=== PATIENT | female | born 1960 | race Caucasian/White ===

== ENCOUNTER 2022-03-06 19:34 | Emergency (ER) | payer BC, SELFPAY ==
[2022-03-06 19:43] VITALS: BP 151/73; PULSE 78; RESP 18; TEMP 36.4; O2SAT 98
[2022-03-06 19:59] LABS: Appearance Urine Clear (Clear); Bilirubin Urine Negative (Negative); Blood Urine Negative (Negative); Color Urine Yellow (Yellow); Glucose Urine Negative (Negative); Ketones Urine Negative (Negative); Leukocyte Esterase Urine Negative (Negative); Nitrite Urine Positive (Negative); Protein Urine Negative (Negative); Specific Gravity Urine 1.015 (1.000-1.030); Urobilinogen Urine 0.2 (0.2-1.0); pH Urine 7.5 (5.0-8.5)
[2022-03-06 20:08] LABS: RBC Urine 0-2 (0-2); Squamous Epithelial Cell Urine Few (None-Few); WBC Urine 0-2 (0-5)
--- NOTE | 2022-03-06 20:09 | ED.FEMALEGU ---
HPI - Female Genitourinary General Date Seen: 03/06/22 Chief complaint: Urogenital Problems, Female Stated complaint: POSSIBLE BLADDER INFECTION,SWELLING IN LEFT GROIN Time Seen by Provider: 03/06/22 19:53 Source: patient Mode of arrival: ambulatory Limitations: no limitations History of Present Illness HPI Narrative: Patient is a delightful 62-year-old female who presents here with 3 days worth of lower abdominal pressure, dysuria, postvoid urgency, she says she feels she might have a bladder infection, she spoke to her daughters who have had similar symptoms. She denies any fevers chills back pain associated with this any nausea or vomiting. No real history of previous bladder infections, and does not note that there is any blood in her urine or vaginal discharge. But she does note however in her left groin all region she has a small lump that is tender, this is cropped up in the last 3-4 days. Does notice anything around her vaginal opening, the cause any discomfort. She called an online provider, who said that she felt more comfortable if she was seen in the emergency room. MD elicited complaint: dysuria and UTI Severity: moderate Urinary symptoms: Dysuria, Urgency and Frequency Exacerbating factors: urination Relieving factors: none Associated symptoms: lump(s) Treatment prior to arrival: none Patient : No Related Data Home Medications Medication Instructions Recorded Confirmed No Known Home Medications 03/06/22 03/06/22 Allergies Allergy/AdvReac Type Severity Reaction Status Date / Time Penicillins Allergy Unknown Verified 03/06/22 19:47 Review of Systems Status of ROS: Reports: 6 or more systems reviewed and unremarkable except as noted in History and below [facility] Medical History (Updated 03/06/22 @ 20:24 by Danie Barton MD) No significant past medical history Surgical History (Updated 03/06/22 @ 20:22 by Terrence Carrasquillo RN) H/O tubal ligation History of appendectomy History of bilateral knee replacement History of endometrial ablation Social History Smoking Status: Never smoker Do you use any of these nicotine containing products: None How often do you have a drink containing alcohol: never AUDIT-C Alcohol total score: 0 Non-prescribed substance use: denies use Exam Narrative: Exam Narrative: Patient is seen with nurse Starks present, abdomen is soft there is no guarding no past organomegaly no tenderness is elicited any of the areas, no CVA tenderness, back is nontender to palpation, her left groin does show of isolated lymph node, that is tender, no other lymphadenopathy is noted in her groins bilaterally, axilla, supraclavicular or sternocleidomastoid regions. Const: Vital Signs, click to edit/add: Vital Signs - 24 hr 03/06/22 19:43 Temperature 97.6 F Pulse Rate [Right Pulse Oximeter] 78 Respiratory Rate 18 Blood Pressure [Ri ght Upper Arm] 151/73 H Pulse Oximetry 98 Oxygen Delivery Me thod Room Air Documenting provider has reviewed patient's vital signs: yes Common normals: no apparent distress, average body habitus and oriented x3 Neuro: Common normals: oriented x3 Course Vital Signs Vital signs: Initial Vital Signs Temperature 97.6 F 03/06/22 19:43 Temperature Source Temporal Artery Scan 03/06/22 19:43 Pulse Rate 78 03/06/22 19:43 Respiratory Rate 18 03/06/22 19:43 Blood Pressure 151/73 H 03/06/22 19:43 Blood Pressure Mean 99 03/06/22 19:43 Blood Pressure Position Sitting 03/06/22 19:43 Pulse Oximetry 98 03/06/22 19:43 Oxygen Delivery Method 03/06/22 19:43 Vital Signs Temperature 97.6 F 03/06/22 19:43 Pulse Rate 78 03/06/22 19:43 Respiratory Rate 18 03/06/22 19:43 Blood Pressure 151/73 H 03/06/22 19:43 Pulse Oximetry 98 03/06/22 19:43 Oxygen Delivery Method 03/06/22 19:43 Temperature 97.6 F 03/06/22 19:43 Pulse Rate 78 03/06/22 19:43 Respiratory Rate 18 03/06/22 19:43 Blood Pressure 151/73 H 03/06/22 19:43 Pulse Oximetry 98 03/06/22 19:43 Oxygen Delivery Method 03/06/22 19:43 MDM - Female Genitourinary MDM Narrative Medical decision making narrative: Discussed with her, that I fully this is more likely a UTI I did consider other diagnosis such as appendicitis diverticulitis, bowel obstruction, STD, vaginal infection, or gland cyst. Differential Diagnosis Differential diagnosis: Likely urinary tract infection, cervicitis and cyst of Bartholin's gland Medical Records Attestation: I reviewed the patient's medical records. Lab Data Attestation: I reviewed the patient's lab results. Lab results narrative: Her labs are positive for nitrite, really negative for anything else, which she is not on realistic given that she is urinating probably 5-6 times per hour. Drinking a lot a water. Discussed with her that I think it is reasonable that we treat her, headache at Keflex would be a good thing. She tells me she has allergy to penicillin which basically was when she got IM injections with penicillin when she was younger she would pass out. I do not think that that is actually an allergy. It is more likely just from the injection Labs: Lab Results 03/06/22 Range/Units 19:45 Urine Color Yellow (Yellow) Urine Appearance Clear (Clear) Urine pH 7.5 (5.0-8.5) Ur Specific [place] 1.015 (1.000-1.030) Urine Protein Negative (Negative) Urine Glucose (UA) Negative (Negative) Urine Ketones Negative (Negative) Urine Blood Negative (Negative) Urine Nitrite Positive A (Negative) Urine Bilirubin Negative (Negative) Urine Urobilinogen 0.2 (0.2-1.0) Ur Leukocyte Esterase Negative (Negative) Urine RBC 0-2 (0-2) Urine WBC 0-2 (0-5) Ur Squamous Epith Cells Few (None-Few) Urine Bacteria None (None) Discharge Plan Discharge Clinical Impression: Acute lymphadenitis Urinary tract infection Qualifiers: Urinary tract infection type: site unspecified Patient Disposition: Home w/ Parent or Adult Condition: Stable Instructions: Urinary Tract Infection in Women (DC), Adenitis (ED) Additional Instructions: Home rest use of Keflex which is an antibiotic as directed. Try not to touch the gland on the left groin, as these are very reactive in will continue to be sore. Increasing nausea vomiting fevers chills or other symptoms I would like you to come back and be seen, or if pain increases in her back. Prescriptions: No Action No Known Home Medications Follow Up/Referrals: Laurita Orr MD [Primary Care Provider] - Stand Alone Forms: [employer] (powering [employer]) Info Instructions
[2022-03-06 20:30] VITALS: BP 145/68; PULSE 74; RESP 18; TEMP 36.4; O2SAT 98
[2022-03-06 20:31] VITALS: BP 145/68; PULSE 74; RESP 18; TEMP 36.4
== END 2022-03-06 20:31 | disposition home or self-care (01) ==
PROVIDERS: Emergency Provider Family Medicine; PCP Internal Medicine
DX: N39.0 Urinary tract infection, site not specified (principal); I88.9 Nonspecific lymphadenitis, unspecified
CPT/HCPCS: 81003; 81015; 87086; 99283

== ENCOUNTER 2022-03-12 14:31 | Outpatient (CLI) | payer BC, SELFPAY ==
[2022-03-13 01:18] LABS: Albumin* 4.5 g/dL (3.3-5.0); Chloride* 100 mmol/L (96-114); Sodium* 139 mmol/L (135-149)
[2022-03-13 01:19] LABS: Potassium* 4.6 mmol/L (3.6-5.1)
[2022-03-13 01:21] LABS: Alkaline Phosphatase* 81 U/L (40-150); Aspartate Amino Transferase* 33 U/L (12-35); Bilirubin Total* 0.7 mg/dL (0.1-1.5); Carbon Dioxide* 30 mmol/L (20-32); Creatinine* 0.8 mg/dL (0.5-1.5); Estimated Glomerular Filt Rate 83 ml/min; Total Protein* 7.8 g/dL (6.0-8.3)
[2022-03-13 01:22] LABS: Alanine Aminotransferase* 22 U/L (4-35); Blood Urea Nitrogen* 19 mg/dL (7-30); Calcium* 9.8 mg/dL (8.4-10.6); Glucose* 98 mg/dL (60-115)
[2022-03-13 02:43] LABS: C Reactive Protein* < 0.5 mg/dL (0.5-1.0)
== END 2022-03-12 14:32 | disposition home or self-care (01) ==
PROVIDERS: PCP Internal Medicine; Visit Provider Family Medicine
DX: L04.9 Acute lymphadenitis, unspecified (principal)
CPT/HCPCS: 80053; 86140

== ENCOUNTER 2024-04-09 07:55 | Outpatient (CLI) | payer MEDICARE, BC, SELFPAY | END 2024-04-09 07:56 | disposition home or self-care (01) | LOC: NFLDREF 04-11 14:23 | PROVIDERS: PCP Internal Medicine; Referring Provider Internal Medicine; Visit Provider Internal Medicine | DX: E78.5 Hyperlipidemia, unspecified (principal) | CPT/HCPCS: 80061 ==

== ENCOUNTER 2024-04-12 08:12 | Outpatient (CLI) | payer MEDICARE, BC, SELFPAY ==
[2024-04-14 09:43] LABS: HPV Source Cervical; HPV, High Risk by TMA Not Detected
== END 2024-04-12 08:13 | disposition home or self-care (01) ==
PROVIDERS: PCP Internal Medicine; Visit Provider Internal Medicine
DX: Z00.00 Encounter for general adult medical examination without abnormal findings (principal); E66.9 Obesity, unspecified; E78.5 Hyperlipidemia, unspecified; Z12.4 Encounter for screening for malignant neoplasm of cervix
CPT/HCPCS: 87624; 87625; 88141; 88142

== ENCOUNTER 2024-05-07 07:47 | Outpatient (CLI) | payer MEDICARE, BC, SELFPAY ==
--- NOTE | 2024-05-07 09:00 | W.ANESCHARGE ---
Anesthesia Charges Start Date/Time Anesthesia Start Date: 05/07/24 Anesthesia Start Time: 08:20 Stop Date/Time Anesthesia Stop Date: 05/07/24 Anesthesia Stop Time: 08:58
--- NOTE | 2024-05-07 09:37 | W.ANESCHARGE ---
Anesthesia Charges Start Date/Time Anesthesia Start Date: 05/07/24 Anesthesia Start Time: 08:20 Stop Date/Time Anesthesia Stop Date: 05/07/24 Anesthesia Stop Time: 08:58
== END 2024-05-07 07:48 | disposition home or self-care (01) ==
LOC: OP CLINIC 07:48
PROVIDERS: PCP Internal Medicine; Visit Provider Internal Medicine
DX: Z12.11 Encounter for screening for malignant neoplasm of colon (principal); D12.2 Benign neoplasm of ascending colon; K57.30 Diverticulosis of large intestine without perforation or abscess without bleeding
CPT/HCPCS: 00811; 45380; 88305; J2704

== ENCOUNTER 2024-05-22 12:42 | Outpatient (CLI) | payer MEDICARE, BC, SELFPAY ==
--- NOTE | 2024-05-22 14:00 | CRLHL7_ITS ---
For Patients: As a result of the Century Cures Act, medical imaging exams and procedure reports are released immediately into your electronic medical record. You may view this report before your referring provider. If you have questions, please contact your health care provider. DXA BONE MINERAL DENSITY STUDY Current height (in): 64.0. Weight (lb): 190.0. Menopause age: 64. Ethnicity: White. Reason for exam: Asymptomatic menopausal state. 1. Have you had a previous hip or vertebral fracture? No. 2. Have you had any fractures during your adult life which did not result from significant trauma (e.g., auto accident)? No. 3. Did either of your parents have a hip fracture? Yes. 4. Do you smoke? No. 5. Have you ever taken Glucocorticoids? No. 6. Do you have rheumatoid arthritis? No. 7. Do you have secondary osteoporosis? No. 8. Do you drink 3 or more alcoholic drinks per day? No. 9. Are you being treated for osteoporosis? No. 10. Have you ever taken any of the following medications: Actonel, Evista, Fosamax, Miacalcin, Reclast, Boniva, Forteo, HRT (i.e. estrogen/hormone therapy), Protelos, Prolia, Vitamin D, Calcium, other ??? please specify. ANSWER: No. 11. Do you have any of the following medical conditions: Anorexia or bulimia, asthma or emphysema, end stage renal disease, hyperparathyroidism, any seizure disorders, cancer, inflammatory bowel diseases, hysterectomy, other ??? please specify. ANSWER: No. 12. What was your maximum height (inches)? 64. 13. Do you perform weight bearing exercise regularly? No. 14. Do you regularly consume dairy products? Yes. 15. Do you drink caffeinated beverages? Yes. 16. At what age did your period start? 12. 17. Are you premenopausal? o. 18. How many full-term pregnancies have you had? 3. 19. Have you ever missed your period for more than 6 months in a row (not including or menopause)? No. TECHNIQUE: Bone mineral density study was performed using the Crysalin. FINDINGS: The results of the study expressed as bone mineral density (BMD) are as follows: Lumbar spine L1 to L4: BMD: 0.992 g/cm2. T-score: -0.5. Z-score: 1.3 Neck Left: BMD: 0.900 g/cm2. T-score: 0.5. Z-score: 2.0 Right: BMD: 0.915 g/cm2. T-score: 0.6. Z-score: 2.1 Total Left: BMD: 0.952 g/cm2. T-score: 0.1. Z-score: 1.3 Right: BMD: 0.938 g/cm2. T-score: -0.0. Z-score: 1.2 IMPRESSION: Normal bone density. Wyatt Arteaga M.D. Diagnostic Radiologist [email or web address] Transcribed: 12:48 pm DW/Dictated by: Wyatt Arteaga MD @ 05/23/2024 12:13:00 PM (Electronically Signed)
--- NOTE | 2024-05-22 14:40 | CRLHL7_ITS ---
For Patients: As a result of the Century Cures Act, medical imaging exams and procedure reports are released immediately into your electronic medical record. You may view this report before your referring provider. If you have questions, please contact your health care provider. BILATERAL DIGITAL SCREENING MAMMOGRAM WITH COMPUTER-AIDED DETECTION AND TOMOSYNTHESIS CLINICAL HISTORY: Routine screening exam. COMPARISON: 07/24/21, 08/08/18, 09/27/14. TECHNIQUE: Digital mammogram in CC and MLO projections including computer-aided detection (CAD). Tomosynthesis was used in this interpretation. BREAST COMPOSITION: There are scattered areas of fibroglandular density. FINDINGS: RIGHT Breast: No suspicious findings. LEFT Breast: Focal asymmetric density upper outer quadrant 7 cm from the nipple. IMPRESSION: LEFT breast asymmetry/mass. RECOMMENDATIONS: Additional mammographic views of the LEFT breast including 3D spot compression CC/MLO. LEFT breast ultrasound may also be required. BI-RADS Category 0: Incomplete: Need Additional Imaging Evaluation The [facility] will contact the patient. A lay language report of this examination will be provided to the patient. Dictated by Wyatt Arteaga MD @ 05/23/2024 9:56:30 AM jj/Dictated by: Wyatt Arteaga MD @ 05/23/2024 9:56:00 AM (Electronically Signed)
== END 2024-05-22 12:43 | disposition home or self-care (01) ==
PROVIDERS: PCP Internal Medicine; Visit Provider Internal Medicine
DX: Z12.31 Encounter for screening mammogram for malignant neoplasm of breast (principal); N63.20 Unspecified lump in the left breast, unspecified quadrant; Z78.0 Asymptomatic menopausal state
CPT/HCPCS: 77063; 77067; 77080

== ENCOUNTER 2024-06-01 07:30 | Outpatient (CLI) | payer MEDICARE, BC, SELFPAY ==
--- NOTE | 2024-06-01 07:45 | CRLHL7_ITS ---
For Patients: As a result of the Cures Act, medical imaging exams and procedure reports are released immediately into your electronic medical record. You may view this report before your referring provider. If you have questions, please contact your health care provider. DIGITAL DIAGNOSTIC LEFT MAMMOGRAM USING TOMOSYNTHESIS AND COMPUTER-AIDED DETECTION LEFT BREAST ULTRASOUND CLINICAL HISTORY: LEFT breast mass/asymmetry. COMPARISON: 05/22/2024. TECHNIQUE: Digital LEFT mammogram in two projections. Tomosynthesis and CAD were used in this interpretation. Real-time ultrasound imaging of LEFT breast with imaging documentation. Scanning was performed by both the technologist and the radiologist. BREAST COMPOSITION: There are scattered areas of fibroglandular density. FINDINGS: 3D spot compression CC/MLO LEFT breast mammogram images submitted. Persistent irregular density within the upper outer quadrant. No suspicious calcifications. Targeted LEFT breast ultrasound performed at 1 o`clock 7 cm from the nipple. In this location, there is a subtle heterogeneous solid nodule measuring 9 x 6 x 8 millimeters. IMPRESSION: Indeterminate heterogeneous solid nodule LEFT breast 1 o`clock 7 cm from the nipple measuring 9 millimeters. RECOMMENDATIONS: Ultrasound-guided core needle biopsy. A lay language report of this examination will be provided to the patient. BI-RADS Category 4: Suspicious Dictated by Wyatt Arteaga MD @ 06/01/2024 8:56:02 AM jj/Dictated by: Wyatt Arteaga MD @ 06/01/2024 8:55:00 AM (Electronically Signed)
--- NOTE | 2024-06-01 08:15 | CRLHL7_ITS ---
For Patients: As a result of the Cures Act, medical imaging exams and procedure reports are released immediately into your electronic medical record. You may view this report before your referring provider. If you have questions, please contact your health care provider. PLEASE SEE DIGITAL DIAGNOSTIC LEFT MAMMOGRAM PERFORMED SAME DAY CRL:[email or web address] onofre/Dictated by: Wyatt Arteaga MD @ 06/01/2024 8:56:00 AM (Electronically Signed)
== END 2024-06-01 07:31 | disposition home or self-care (01) ==
LOC: MAMMO 07:31
PROVIDERS: PCP Internal Medicine; Visit Provider Internal Medicine
DX: N63.20 Unspecified lump in the left breast, unspecified quadrant (principal); R92.8 Other abnormal and inconclusive findings on diagnostic imaging of breast
CPT/HCPCS: 76642; 77065; G0279

== ENCOUNTER 2024-06-05 07:46 | Outpatient (CLI) | payer MEDICARE, BC, SELFPAY ==
--- NOTE | 2024-06-05 08:00 | CRLHL7_ITS ---
For Patients: As a result of the Century Cures Act, medical imaging exams and procedure reports are released immediately into your electronic medical record. You may view this report before your referring provider. If you have questions, please contact your health care provider. ULTRASOUND-GUIDED BREAST BIOPSY AND POST-BIOPSY DIGITAL MAMMOGRAM FOR BIOPSY MARKER PLACEMENT CLINICAL HISTORY: Indeterminate lesion. COMPARISON STUDIES: 06/01/2024. TECHNIQUE: Real-time ultrasound with image documentation was used for targeting the breast lesion. Core biopsy specimens were obtained using an automated gun with an 18-gauge biopsy needle. Post-biopsy CC and ML digital mammograms were obtained to document position of the biopsy marker. CONSENT and TIME OUT: The procedure, risks, and alternatives were explained to the patient and a consent was signed. [place] Protocol was followed including pre-procedure verification that relevant information/documentation was available, reviewed and properly matched to the patient; consent accurate and complete; and equipment and supplies available. Time Out was conducted just prior to starting procedure to verify the four required elements: patient identity, correct side/site marked (if applicable), procedure, relevant images/results properly labeled and displayed (if applicable). PROCEDURE: The patient was positioned supine on the ultrasound table. The breast was prepped with ChloraPrep. 6 cc of 1 percent lidocaine used for local anesthesia. Core samples were obtained. A sterile metal biopsy clip was placed percutaneously to nabila the lesion position within the breast. The specimens were placed in 10% formalin and sent to the pathology department. Pressure was held on the biopsy site until all bleeding subsided. The skin incision was closed with Steri-Strips. An ice pack was positioned over the biopsy site. Post-biopsy instructions were reviewed with the patient, and a written copy was given to her. LATERALITY: LEFT breast. LESION: Heterogeneous solid nodule measuring 8 x 9 x 6 millimeters at 1 o`clock 7 cm from the nipple. SUSPICION FOR MALIGNANCY: High. NUMBER OF SAMPLES: 5. BIOPSY CLIP SHAPE: Oval. PROXIMITY OF CLIP TO TARGET: Within the lesion. IMPRESSION: Ultrasound-guided breast biopsy. When the pathology report is available, an addendum to this report will be made. ACR not applicable Dictated by Wyatt Arteaga MD @ 06/05/2024 10:34:42 AM jj/Dictated by: Wyatt Arteaga MD @ 06/05/2024 10:34:00 AM (Electronically Signed)
--- NOTE | 2024-06-05 08:45 | CRLHL7_ITS ---
For Patients: As a result of the Century Cures Act, medical imaging exams and procedure reports are released immediately into your electronic medical record. You may view this report before your referring provider. If you have questions, please contact your health care provider. PLEASE SEE ULTRASOUND-GUIDED LEFT BREAST BIOPSY PERFORMED SAME DAY CRL:[email or web address] onofre/Dictated by: Wyatt Arteaga MD @ 06/05/2024 10:34:00 AM (Electronically Signed)
== END 2024-06-05 07:47 | disposition home or self-care (01) ==
LOC: US 07:46
PROVIDERS: PCP Internal Medicine; Visit Provider Internal Medicine
DX: N64.9 Disorder of breast, unspecified (principal); C50.912 Malignant neoplasm of unspecified site of left female breast; R92.8 Other abnormal and inconclusive findings on diagnostic imaging of breast
CPT/HCPCS: 19083; 77065; 88305; 88360; 88361; A4648; A4649

== ENCOUNTER 2024-06-22 12:53 | Outpatient (RCR) | payer MEDICARE, BC, SELFPAY ==
--- NOTE | 2024-06-22 13:53 | PT.OPE ---
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 Their surgery has not been scheduled yet but likely will be a lumpectomy with SLND on July 31. Has not met with an oncologist yet, if lymph nodes are clear then they will just have radiation. Has no major issues with neck and shoulders. Has a history for bilateral knee replacements. Stays active with housework, no formal exercise. Pain Comments tenderness at biopsy spot Current Work Status Retired Objective Other/Pertinent Objective AROM standing: Shoulder flexion L 153 R 160 abduction 176 B [place] L 168 R 174 IR T11 B ER T3 B Posture: no significant impairments Joint mobility: normal posterior glide of GHJ normal inferior glide of GHJ Scapular control: fair Pec length in supine abd/ER: 4 fingers from table top Functional Test Performed & Score Pre op SPADI:0/130 Assessment Assessment/Impression Patient presents to PT pre- operatively for planned Breast Cancer surgery to include lumpectomy and SLNB on July 31. Assessment today included baseline UE ROM, postural, and joint mobility measurements which are to be compared to measurements retaken 4 weeks post-surgery. At that time, any reduced movement, decline in function, or postural issues will be addressed with skilled care and new goals will be established. Education was given today regarding post-operative signs of infection, axillary cording, seroma formation, and home program to be performed within the first 3-4 weeks post-operatively focusing on UE mobility within surgical restrictions. Primary Functional Limitations none at this time Plan of Care Rehabilitation Potential Good Physical Therapy Goals Goals pre op 1. Pt demonstrates awareness of post-operative movement restrictions and HEP to facilitate lymphatic regeneration and reduce the risk of seroma formation, axillary web syndrome and lymphedema while ensuring shoulder joint mobility. Coordination/Communication With Referral Source Treatment Plan/Direct Interventions Ice/Cold/Vasopneumatic,Joint Mobilization,Manual Therapy, Neuromuscular Re-ed,Self-Care/ Home Management,Therapeutic Activities,Therapeutic Exercises Frequency/Duration 1-2x a week for 3-4 weeks prior to radiation Patient Will Be Discharged From Therapy Completion of LTG(s), Independent w/HEP Evaluation Billing Untimed Code Treatment Minutes 17 Complexity Low Certification Information Initial Certification Date 06/22/24 Ending Certification Date 09/20/24 Provider Signature Required Yes Provider Signature Shows Agreement With POC & Medical Necessity Physician NPI Number Write NPI# Here Physician Comment/Change : Physician Signature & Date Requested Please Sign/Date Here
== END 2024-10-20 23:59 | disposition home or self-care (01) ==
PROVIDERS: PCP Internal Medicine; Visit Provider Surgery
DX: C50.912 Malignant neoplasm of unspecified site of left female breast (principal); Z51.89 Encounter for other specified aftercare
CPT/HCPCS: 97110; 97161

== ENCOUNTER 2024-07-17 09:28 | Day surgery (SDC) | payer MEDICARE, BC, SELFPAY ==
--- NOTE | 2024-07-17 10:15 | CRLHL7_ITS ---
For Patients: As a result of the Cures Act, medical imaging exams and procedure reports are released immediately into your electronic medical record. You may view this report before your referring provider. If you have questions, please contact your health care provider. BREAST WIRE LOCALIZATION USING ULTRASOUND GUIDANCE CLINICAL HISTORY: LEFT breast cancer. LATERALITY: LEFT breast. LESION: Solid lesion LEFT breast 1 o`clock 7 cm from the nipple measuring 9 x 6 x 8 millimeters. LOCALIZATION WIRE: [place] hookwire. TECHNIQUE: The localization wire was placed using real-time ultrasound guidance with image documentation. Cranial-caudal and medial-lateral digital mammograms were obtained after localization wire placement. CONSENT and TIME OUT: The procedure, risks, and alternatives were explained to the patient and a consent was signed. [place] Protocol was followed including pre-procedure verification that relevant information/documentation was available, reviewed and properly matched to the patient; consent accurate and complete; and equipment and supplies available. Time Out was conducted just prior to starting procedure to verify the four required elements: patient identity, correct side/site marked (if applicable), procedure, relevant images/results properly labeled and displayed (if applicable). PROCEDURE: The skin was prepped with ChloraPrep and 6 cc of 1% lidocaine was injected for local anesthesia. The localization wire was placed within or near the targeted breast lesion using ultrasound guidance. The patient tolerated the procedure well. PROXIMITY OF WIRE TO LESION: The wire is present within the lesion adjacent to the clip. IMPRESSION: Successful breast wire localization. ACR not applicable Dictated by Wyatt Arteaga MD @ 07/17/2024 12:30:34 PM jj/Dictated by: Wyatt Arteaga MD @ 07/17/2024 12:30:00 PM (Electronically Signed)
[2024-07-17 10:26] VITALS: BP 142/92; PULSE 74; RESP 16; TEMP 37.1; O2SAT 97; BMI 20.7
[2024-07-17] MEDS: SODIUM CHLORIDE 0.9 % (FLUSH) 10 ML SYRINGE IVF (10:30)
[2024-07-17] MEDS: 0.9 % SODIUM CHLORIDE 500 ML 500 ML 100 ML IV (10:31)
--- NOTE | 2024-07-17 11:00 | CRLHL7_ITS ---
For Patients: As a result of the Century Cures Act, medical imaging exams and procedure reports are released immediately into your electronic medical record. You may view this report before your referring provider. If you have questions, please contact your health care provider. SEE ULTRASOUND-GUIDED LEFT BREAST WIRE LOCATION PERFORMED SAME DAY CRL:[place] onofre/Dictated by: Wyatt Arteaga MD @ 07/17/2024 12:29:00 PM (Electronically Signed)
--- NOTE | 2024-07-17 11:08 | W.PM.H&PU ---
History & Physical Update History & Physical Update H&P Reviewed and patient assessed: No changes noted
[2024-07-17] MEDS: ISOSULFAN BLUE 5 ML VIAL INJECTION (11:30)
[2024-07-17] MEDS: CEFAZOLIN 2 GM INJ IVP (11:30)
--- NOTE | 2024-07-17 12:03 | CRLHL7_ITS ---
For Patients: As a result of the Cures Act, medical imaging exams and procedure reports are released immediately into your electronic medical record. You may view this report before your referring provider. If you have questions, please contact your health care provider. LEFT BREAST SPECIMEN RADIOGRAPH CLINICAL HISTORY: LEFT breast cancer. COMPARISON: 06/01/2024, 06/05/2024. FINDINGS: Two views of the LEFT breast specimen images submitted. The specimen contains the biopsy lesion, the biopsy clip and the localization wire. IMPRESSION: Specimen contains the biopsied nodule, the biopsy clip and the localization wire. ACR not applicable Dictated by Wyatt Arteaga MD @ 07/17/2024 12:32:38 PM jj/Dictated by: Wyatt Arteaga MD @ 07/17/2024 12:32:00 PM (Electronically Signed)
[2024-07-17] MEDS: BUPIVACAINE 0.25% 30 ML INJECTION (13:18)
[2024-07-17] MEDS: LIDOCAINE 1% MDV 20 ML INJECTION (13:18)
[2024-07-17 13:33] VITALS: BP 128/69; PULSE 66; RESP 16; TEMP 36.2; O2SAT 95
--- NOTE | 2024-07-17 13:40 | W.ANESCHARGE ---
Anesthesia Charges Start Date/Time Anesthesia Start Date: 07/17/24 Anesthesia Start Time: 11:22 Stop Date/Time Anesthesia Stop Date: 07/17/24 Anesthesia Stop Time: 13:36
--- NOTE | 2024-07-17 13:44 | W.ANESCHARGE ---
Anesthesia Charges Start Date/Time Anesthesia Start Date: 07/17/24 Anesthesia Start Time: 11:22 Stop Date/Time Anesthesia Stop Date: 07/17/24 Anesthesia Stop Time: 13:36
[2024-07-17 13:45] VITALS: BP 135/83; PULSE 68; RESP 16; O2SAT 97
[2024-07-17] MEDS: HYDROCODONE-ACETAMIN 5-325 MG 1 TAB PO (13:50)
[2024-07-17 14:00] VITALS: BP 150/89; PULSE 67; RESP 16; O2SAT 97
[2024-07-17 14:15] VITALS: BP 149/80; PULSE 62; RESP 16; O2SAT 98
--- NOTE | 2024-07-17 16:14 | P.GSOP_ITS ---
Operative Note Date of procedure: 07/17/24 Pre-op diagnosis: Invasive ductal carcinoma, left breast Post-op diagnosis: Same Type of Procedure: 1. Left breast lumpectomy 2. [place] lymph node biopsy, unable to perform due to failure of nuclear medicine Indications: Patient is a 64-year-old female who was seen in clinic for an stage IA invasive ductal carcinoma of the left breast. Please see consultation note for full discussion regarding different treatment options. After all questions and concerns were addressed patient decided to proceed with left breast lumpectomy and sentinel lymph node biopsy. Risks and benefits of the procedure were discussed at length the patient. Risks included, but were not limited to: Bleeding, infection, risk of damage to surrounding structures, the risk of lymphedema, the risk of nerve injury, seroma formation, hematoma formation and the possible need for an additional procedure if the margins are positive. All questions and concerns were addressed with patient agreeing to proceed. Procedure Description: Prior to arrival in the operating room, the patient was taken to radiology where a wire was placed to localize the previously placed clip. She had previously undergone injection of a radiocolloid tracer at [address] by nuclear medicine. The patient was then brought to the operating room where anesthesia was induced. I injected 3 ml of lymphazurin blue and performed breast massage for a period of 5 minutes. The left breast and axilla were prepped and draped in the usual sterile fashion. Timeout was confirmed. Local anesthesia was infiltrated into a transverse incision in the upper outer location of the left breast. Using electrocautery, the segment of breast tissue containing the tip of the wire was excised. This was sent for evaluation. Radiology called back and confirmed that the clip and wire were present within the specimen. Pathology then called back and confirmed that margins were negative, but close (1-2 mm) anterior. Re- excision of the anterior margin was performed and sent for permanent evaluation as final margin. We then elected to perform the sentinel node aspect of the procedure. Using the neoprobe and placing it within the axilla I tried to identify a point of maximal counts. There was no signal within the axilla. The probe was tested at the nipple, with counts greater than 16,000. When follow-through the breast tissue the counts quickly tapered to 0 with no counts identified within the axilla or lymphatic tissue. A transverse incision was made within the axilla at the hairline. Local anesthesia was infiltrated into the skin. This was carried down to the subcutaneous tissue using electrocautery. Using a combination of blunt dissection and electrocautery the area was thoroughly explored with no activity from the Neoprobe and no blue nodes identified. At this point the decision was made to not pursue a sentinel lymph node due to failure of identification with the radionucleotide tracer. The wounds were irrigated and all irrigant suctioned from the wound. Additional local anesthesia was infiltrated. Joesph was placed in the breast wound. The wounds were then closed in layers using absorbable suture, and Steri-Strips were placed over the wounds. A double wide Cesar wrap was placed for compression. The patient was awakened without incident and taken to PACU in stable condition. Sponge, needle and instrument counts were correct x3 at the termination of the case. Findings: Left breast cancer, removed. No sentinel lymph node identified with radionucleotide tracer or blue dye. Anesthesia: MAC and local Surgeon: Jessica Doherty MD Estimated blood loss (mL): 25 Additional Specimen Information: 1. Left breast mass 2. Re-excision anterior margin Condition: stable Disposition: PACU
--- NOTE | 2024-07-17 16:22 | P.PCN_ITS ---
Procedure Note Date Seen: 07/17/24 Will [facility] bill your pro fee for this procedure?: Yes Bath Node Biopsy for Breast Cancer Operation Performed with Curative Intent: Yes Tracers used to Identify sentinel nodes in the upfront surgery (non-neoadjuvant) setting: Dye and Radioactive Tracer Tracers used to identify sentinel nodes in the neoadjuvant setting: N/A All nodes (colored or non-colored) present at the end of a dye filled lymphatic channel were removed: Yes (None identified) All significantly radioactive nodes were removed: Yes (None identified) All palpably suspicious nodes were removed: Yes (None identified) Biopsy proven positive nodes marked with clips prior to chemotherapy were identified and removed: Not Applicable
== END 2024-07-17 14:22 | disposition home or self-care (01) ==
PROVIDERS: PCP Internal Medicine; Visit Provider Surgery
PROC: (CPT 19125; principal; 2024-07-17 11:00)
PROC: (CPT 19125; 2024-07-17 11:00)
PROC: (CPT 19125; 2024-07-17 11:00)
DX: C50.412 Malignant neoplasm of upper-outer quadrant of left female breast (principal); Z17.0 Estrogen receptor positive status [ER+]; Z17.21 Progesterone receptor positive status
CPT/HCPCS: 19125; 38500; 01610; 19285; 76942; 77065; 88305; 88307; J2003; A9270; C1769; J0665; J0690; J1100; J2250; J2405; J2704; J3010; J7030

== ENCOUNTER 2024-08-09 09:05 | Outpatient (CLI) | payer MEDICARE, BC, SELFPAY | END 2024-08-09 09:06 | disposition home or self-care (01) | PROVIDERS: PCP Internal Medicine; Visit Provider Internal Medicine Hematology & Oncology | DX: M79.89 Other specified soft tissue disorders (principal) | CPT/HCPCS: 76882 ==

== ENCOUNTER 2024-12-05 14:30 | Outpatient (RCR) | payer MEDICARE, BC, SELFPAY ==
--- NOTE | 2024-08-01 15:37 | ONC.NURNOTE ---
1. Request for Oncotype testing submitted via online portal 2. Radiation Oncology referral and supporting documents faxed to [place]. They will call patient to schedule. Instructed to have consult after Oncotype results are back. 3. Radiology will call patient to schedule left axilla US Patient will need follow up with Dr. Soto to discuss endocrine therapy after radiation is completed. [facility] will schedule once treatment plan has been finalized.
--- NOTE | 2024-08-13 13:55 | ONC.NURNOTE ---
Oncotype results reviewed with Dr. Soto. Patient informed that her recurrence score is 9 and she would not benefit from chemotherapy. Okay to proceed with radiation, consult 08/[address] Soto will follow up 1-2 weeks after radiation is completed to discuss endocrine therapy.
--- NOTE | 2024-10-17 09:38 | ONC.NURNOTE ---
Call to patient to see how she is tolerating her anastrozole. Message left encouraging patient to call back with questions or concerns.
== END 2025-01-28 23:59 | disposition home or self-care (01) ==
LOC: CCIC 14:30
PROVIDERS: PCP Internal Medicine; Visit Provider Internal Medicine Hematology & Oncology
DX: C50.912 Malignant neoplasm of unspecified site of left female breast (principal); Z17.0 Estrogen receptor positive status [ER+]; Z79.810 Long term (current) use of selective estrogen receptor modulators (SERMs)
CPT/HCPCS: 99202; 99204; 99214; 99215; G0463

== ENCOUNTER 2025-05-16 09:44 | Outpatient (CLI) | payer MEDICARE, BC, SELFPAY ==
--- NOTE | 2025-05-16 10:00 | CRLHL7_ITS ---
For Patients: As a result of the Century Cures Act, medical imaging exams and procedure reports are released immediately into your electronic medical record. You may view this report before your referring provider. If you have questions, please contact your health care provider. Indication: CHRONIC COUGH X 9 MONTHS. HX OF BREAST CANCER Technique: Noncontrast CT chest Please note that all CT scans at this facility use dose modulation, iterative reconstruction, and/or weight-based dosing when appropriate to reduce radiation dose to as low as reasonably achievable. Comparison: None Findings: Subpleural nodule right upper lobe measures 6.5 millimeters, 10/03. Patchy ill-defined densities scattered throughout the right upper lobe. Mild dependent fibrotic change in the right lower lobe and to a lesser extent within the left lower lobe. Post radiation pneumonitis changes in the anterior lingula. Postop changes to the left breast. Left breast skin thickening. No intrathoracic adenopathy. Visualized thyroid normal. Mild vascular calcifications. No adrenal nodule. No fracture. Impression: Post XRT changes anterior left lung. Patchy ill-defined densities within the right upper lobe could represent infiltrates. Short-term follow-up in 3 months recommended. Mild dependent scarring/fibrosis in both lower lobes. Subpleural pulmonary nodule measures 6.5 millimeters in the right upper lobe. Please note that all CT scans at this facility use dose modulation, iterative reconstruction, and/or weight-based dosing when appropriate to reduce radiation dose to as low as reasonably achievable. Dictated by Wyatt Arteaga MD @ 05/16/2025 10:25:14 AM (Electronically Signed)
== END 2025-05-16 09:45 | disposition home or self-care (01) ==
LOC: CT 09:45
PROVIDERS: PCP Internal Medicine; Visit Provider Internal Medicine
DX: R05.3 Chronic cough (principal); R91.1 Solitary pulmonary nodule; J84.10 Pulmonary fibrosis, unspecified
CPT/HCPCS: 71250

== ENCOUNTER 2025-06-11 08:09 | Outpatient (CLI) | payer MEDICARE, BC, SELFPAY ==
--- NOTE | 2025-06-11 08:15 | CRLHL7_ITS ---
For Patients: As a result of the Century Cures Act, medical imaging exams and procedure reports are released immediately into your electronic medical record. You may view this report before your referring provider. If you have questions, please contact your health care provider. INDICATION: BILATERAL SCREENING MAMMOGRAM, ASYMPTOMATIC 65 Y/O FEMALE COMPARISON: 07/17/2024, 05/22/2024, 07/24/2021 TECHNIQUE: Digital mammogram in CC and MLO projections including computer-aided detection (CAD) and tomosynthesis. BREAST COMPOSITION: There are scattered areas of fibroglandular density. FINDINGS: No suspicious findings. ASSESSMENT: BI-RADS 2 Benign RECOMMENDATION: Annual screening mammogram. A lay language report of this examination will be provided to the patient. Dictated by: Wyatt Arteaga MD @ 06/11/2025 09:59:30 (Electronically Signed)
== END 2025-06-11 08:10 | disposition home or self-care (01) ==
LOC: MAMMO 08:09
PROVIDERS: PCP Internal Medicine; Visit Provider Internal Medicine
DX: Z12.31 Encounter for screening mammogram for malignant neoplasm of breast (principal)
CPT/HCPCS: 77063; 77067